=== PATIENT | male | born 1950 | race African-American/Black ===

== ENCOUNTER 2017-05-28 17:23 | Observation (INO) | payer OTHER ==
[2017-05-28 18:41] LABS: #Eosinphils 0.1 thou/uL (0.0-0.7); #Lymphocytes 2.7 thou/uL (1.20-3.40); #Monocytes 0.8 thou/uL (0.11-0.59); #Neutrophils 3.9 thou/uL (1.40-6.50); %Basophils 0.4 % (0.0-1.0); %Eosinophils 0.9 % (0.0-10.0); %Lymphocytes 36.2 % (21.0-51.0); %Monocytes 10.8 % (0.0-10.0); Hematocrit 32.6 % (42.0-52.0); Mean Platelet Volume 8.2 fL (7.4-10.4); Red Blood Cell (RBC) Count 3.57 mill/uL (4.70-6.10); White Blood Cell (WBC) Count 7.5 thou/uL (4.8-10.8)
[2017-05-28 18:54] LABS: ALT (SGPT) 11 U/L (8-55); AST (SGOT) 19 U/L (5-34); Alkaline Phosphatase 101 U/L (40-150); Anion Gap 15 mmol/L (10-20); BUN (Urea Nitrogen) 19 mg/dL (8.4-25.7); Bilirubin, Total 0.3 mg/dL (0.2-1.2); Calc. Creatinine Clearance 0 mL/min (70-130); Calcium 9.5 mg/dL (7.8-10.44); Carbon Dioxide 15 mmol/L (23-31); Chloride 113 mmol/L (98-107); Estimated GFR-MDRD 72; Globulin 4.1 g/dL (2.4-3.5); Protein, Total 8.2 g/dL (5.8-8.1)
--- NOTE | 2017-05-28 20:36 | CT ---
CT BRAIN WITHOUT CONTRAST 05/28/17 HISTORY: Fall. COMPARISON: CT brain 03/09/17. FINDINGS: The right MCA distribution encephalomalacia is similar. Ex vacuo dilatation of ventricular system is similar. No hemorrhage. Extensive microvascular ischemic changes. Multifocal volume loss of the cereb ellum. Calvarium is intact. The paranasal sinuses and mastoids are clear. IMPRESSION: No significant change. No acute hemorrhage. POS: [facility]
[2017-05-28] MEDS ORDERED: Sodium Chloride 0.9% 1,000 ML IV SCH (22:45)
[2017-05-28 23:09] VITALS: BMI 23.6
[2017-05-29] MEDS ORDERED: Lorazepam 2 MG/ML VIAL SLOW IVP SCH (01:15)
--- NOTE | 2017-05-29 07:08 | HP ---
CHIEF COMPLAINT: Intractable seizures. HISTORY OF PRESENT ILLNESS: The patient is a 66-year-old male with history of seizure disorder ever since he has had 2 CVAs in the past. His family states that he has not been missing his Keppra, but began to have seizure activity despite taking his medication. His first CVA was 2 years ago. He has been hospitalized twice for having seizures when his family will notice that his eyes start flutteri ng and he will turn his head to the left and starts shaking. When EMS was called and they arrived an d he was conscious on arrival, blood sugar was 162. The states that he had fallen from a porch during this seizure with unknown trauma to the head. His last hospitalization for seizure activity w as 3 months ago. PAST MEDICAL HISTORY: The aforementioned CVA x2, hypertension, general noncompliance with medication , congestive heart failure, dementia, hyperlipidemia, pacemaker placement due to arrhythmia. His fir st stroke was in 10/2014. Non-insulin dependent diabetes mellitus. PAST SURGICAL HISTORY: Right hip replacement and the AICD pacemaker. There is no prior history of psychiatric illness or hospitalizations. SOCIAL HISTORY: He is , drinks socially every week. Denies drug use, currently uses tobacco, smokes a half pack per day despite being told he should stop. ALLERGIES: He has no known drug allergies. CURRENT MEDICATIONS: Furosemide 40 mg daily, Keppra 750 mg b.i.d., vitamin D 50,000 units weekly, Ar icept 5 mg at bedtime, Lopid 600 mg b.i.d., potassium 20 mEq daily, clonidine TTS 1 up changed weekly , Lipitor 10 mg at bedtime, metformin 1000 mg b.i.d., he also takes carvedilol 25 mg b.i.d. REVIEW OF SYSTEMS: GENERAL: At the time of admission showed him thriving, unable to give good history such that it was obtained from EMS. NEURO: Neurologically, he has unequal hand grasp with weakness on the left. HEENT: Denies blurred vision or headache, sores or lesions. CHEST: Denies cough or shortness of breath. HEART: Denies chest pain or arrhythmia or palpitations. ABDOMEN: Denies nausea, vomiting or diarrhea. EXTREMITIES: Denies painful urination or blood in urine or stool. MUSCULOSKELETAL: He has left-sided weakness which is not new and no other weaknesses are noted. SKIN: Without acute rashes or lesions. PHYSICAL EXAMINATION: VITAL SIGNS: On admission blood pressure 159/67, pulse 86, respirations 18, O2 sat 95% on room air. GENERAL: This is a well-developed, well-nourished male with diminished responsiveness. HEENT: Normocephalic and atraumatic. Pupils equal, round, and reactive to light with arcus senilis bilaterally. TMs, nares, and pharynx are clear. NECK: Neck is Supple. CHEST: Clear to auscultation. HEART: Regular rate and rhythm without murmur. ABDOMEN: Soft, without organomegaly, nontender. : Deferred. EXTREMITIES: Without clubbing, cyanosis, or edema. There is general muscular weakness noted general ly, but a little less muscle tone on the left in upper and lower extremities. SKIN: Without acute rashes or lesions. NEUROLOGIC: Cranial nerves are intact. Unable to test gait and cerebellar function at this time. S ensory is grossly intact. Deep tendon reflexes untested. The mental status shows diminished respons iveness. He will look at you, but will vaguely respond to your questions with a head nod. LABORATORY: CT of the brain shows no acute findings with general encephalomalacia. WBC 7.5, hemoglo bin 11, hematocrit 32.6 with platelets at 158. Sodium 140, potassium 3.4, chloride 111, CO2 15, BUN 19, creatinine 1.22 with glucose of 122. ASSESSMENT: 1. Intractable seizures despite supratherapeutic Keppra levels. 2. History of cerebrovascular accident x2. 3. Hypertension. 4. History general medical noncompliance. 5. Non-insulin dependent diabetes. PLAN: Supportive care. Neurological consult to see if an additional anti-seizure medicine will be i nitiated. We will do a swallow evaluation since he tends to have much less of an alerting and neurol ogical responsiveness in the past and serial reevaluation.
[2017-05-29] MEDS ORDERED: Lorazepam 2 MG/ML VIAL SLOW IVP PRN (08:17)
[2017-05-29] MEDS ORDERED: Insulin Regular 300 UNITS/3 ML VIAL SC PRN (08:18)
[2017-05-29] MEDS ORDERED: Dextrose 50% Abboject 50 ML SYRINGE IVP PRN (08:18)
[2017-05-29] MEDS ORDERED: Dextrose 5% in Water 1,000 ML IV PRN (08:18)
[2017-05-29] MEDS ORDERED: Enalaprilat Dihydrate 1.25 MG/ML VIAL SLOW IVP PRN (08:18)
[2017-05-29] MEDS ORDERED: cloNIDine 0.2mg/24 Hour PATCH TD SCH (09:00)
[2017-05-29] MEDS: Sodium Chloride 0.9% 1,000 ML IV SCH (14:43)
[2017-05-29] MEDS ORDERED: levETIRAcetam 500 mg/5 ml Oral Solution PO SCH ×2 (15:00→21:00)
[2017-05-29] MEDS: levETIRAcetam 500 mg/5 ml Oral Solution PO SCH (20:54)
--- NOTE | 2017-05-30 01:29 | CON ---
DATE OF CONSULTATION: 05/29/2017 REFERRING PROVIDER: Dr. Samy Hilliard. REASON FOR CONSULTATION: Recurrent seizures. HISTORY OF PRESENT ILLNESS: Mr. Westfall is a pleasant 66-year-old -[place] male with a history of right MCA stroke and seizures, presented with the recurrent seizures. History is obtained from nallely aldridge's family member who was present at bedside. She reports that patient was recently discharged from the hospital about 2 months ago. His Keppra level was adjusted due to 1500 mg b.i.d. He was do ing well up until yesterday when he started having recurrent episodes of seizures. He initially had a focal motor jerking of his left side followed by whole body convulsions, they are cutting in cluste rs of 5-6, which prompted her to bring him to the [facility]. She states that about a week ago he was having some left eye and lip twitching, which she felt it was probably due to sleep and she did not think of it much at that time. However, today was much generalized, which prompted [facility] to bring him to the [place] [facility]. According to the nurse, who is taking care of the patient, he had approximately 10 spells each with focal motor jerking of the left upper extremity. Albert serrano did have one episode where he had left upper extremity stiffening with a head turning to the left s ambrocio followed by whole body convulsions that lasted approximately 1-2 minutes. This has since resolve d. He currently denies any headache, nausea, vomiting, abdominal pain. PAST MEDICAL HISTORY: Significant for history of hypertension, stroke, congestive heart failure, dem entia, hyperlipidemia, seizure disorder, and diabetes. PAST SURGICAL HISTORY: Significant for right hip replacement and AICD pacemaker placement. SOCIAL HISTORY: He is . He drinks alcohol on socially. He denies illicit drug use. He does smoke half a pack per day. CURRENT MEDICATIONS: Please review MAR. ALLERGIES: No known drug allergies. REVIEW OF SYSTEMS: As mentioned above in the HPI, otherwise negative. PHYSICAL EXAMINATION: VITAL SIGNS: Blood pressure of 167/91, pulse of 80, temperature of 97.3, respirations of 21, O2 sats of 97% on room air. GENERAL: Thin-appearing -[place] male, in no apparent distress. RESPIRATORY: Clear to auscultation bilaterally. CARDIOVASCULAR: Regular rate and rhythm. NEUROLOGIC: Mental status: The patient is awake, alert, oriented x3. Speech and language, mildly d ysarthric speech. Cranial nerves: Pupils are 3 mm and reactive. Visual hunt are full to threat. Extraocular muscles are intact. No nystagmus noted. Face is symmetric. Tongue and uvula are midli ne. Motor exam showed flaccid left upper and left lower extremity. He has 0/5 strength in the left upper extremity, strength in the left lower extremity is 3-4/5, strength in the right upper and right lower extremity is 5/5. Sensory: Sensation appears intact. Deep tendon reflexes 1-2+ reflexes in both upper and lower extremities. Babinski: Plantar responses extensor on the left, flexion on the right. Coordination could not be performed. Gait and Romberg could not be performed. LABORATORY DATA: Reviewed, which included CBC, CMP, Keppra level, which is significant for hemoglobi n 11.0, hematocrit 32.6, potassium of 3.4, Keppra level was greater than 100.3. IMAGING STUDIES: CT scan of the head was reviewed, which showed no acute intracranial abnormality. IMPRESSION: 1. Complex partial seizure with secondary generalization. 2. History of prior right MCA stroke. ASSESSMENT AND PLAN: Mr. Westfall is a pleasant 66-year-old -[place] male with a history of str ella and seizure disorder, who presented with recurrent episodes of seizures. At this time, I would r ecommend continuing on Keppra 1500 mg b.i.d. I would repeat his Keppra level on tomorrow. I am load ing with fosphenytoin 1 gram IV load dose followed by Dilantin 300 mg at bedtime. If he remains seiz ure free over the next 24 hours, then the patient is going to discharge to home with outpatient appoi ntment with Dr. Tresa Arevalo for seizure management.
[2017-05-30] MEDS: Sodium Chloride 0.9% 1,000 ML IV SCH (01:48)
[2017-05-30 04:09] LABS: #Lymphocytes 3.3 thou/uL (1.20-3.40); #Neutrophils 5.2 thou/uL (1.40-6.50); %Basophils 0.4 % (0.0-1.0); %Eosinophils 0.2 % (0.0-10.0); %Lymphocytes 34.2 % (21.0-51.0); %Monocytes 10.8 % (0.0-10.0); Hematocrit 29.4 % (42.0-52.0); Mean Platelet Volume 7.9 fL (7.4-10.4); Red Blood Cell (RBC) Count 3.18 mill/uL (4.70-6.10); White Blood Cell (WBC) Count 9.6 thou/uL (4.8-10.8)
[2017-05-30 04:28] LABS: Anion Gap 11 mmol/L (10-20); BUN (Urea Nitrogen) 10 mg/dL (8.4-25.7); Calc. Creatinine Clearance 77 mL/min (70-130); Carbon Dioxide 18 mmol/L (23-31); Chloride 116 mmol/L (98-107); Estimated GFR-MDRD Greater than 90
[2017-05-30] MEDS: levETIRAcetam 500 mg/5 ml Oral Solution PO SCH (09:50)
[2017-05-30 15:44] VITALS: BP 146/60; TEMP 98.6
[2017-05-30] MEDS ORDERED: Carvedilol 25 MG TAB PO SCH (15:45)
--- NOTE | 2017-05-30 21:37 | DIS-2 ---
FINAL DIAGNOSES: 1. Seizures. 2. History of cerebrovascular accident. 3. Hypertension. COMPLICATIONS: None. PROCEDURES: None. CONSULTANTS: Dr. Arevalo. HOSPITAL COURSE: This is a pleasant gentleman who presented to the hospital with ongoing seizure. H e did have a Keppra level slightly being therapeutic. He did have a brain CT that was unremarkable. He did have speech see the patient in consultation, which they did recommend based on his history of stroke to have a pureed diet. The Keppra level was checked, Keppra medication was changed, was also added on Dilantin by Dr. Arevalo. The patient's blood pressure remained stable in the hospital. The p atient's CBC showed H&H of 11 and 32.6, his platelet count was 158. His blood sugar was 120. Liver enzymes were okay. Hospital course was unremarkable. He was able to eat now. He was seizure free f or 24 hours and he was discharged home in stable condition. DIET: Pureed diet. ACTIVITIES: As tolerated. DISCHARGE MEDICATIONS: 1. Catapres TTS 2 q. week. 2. Keppra 1500 mg b.i.d. 3. Dilantin ER 300 mg every day. 4. Lipitor 10 mg every day. 5. Coreg 25 mg b.i.d. 6. Aricept 5 mg every day. 7. Vitamin D2, 50,000 units q. ham[place]. 8. Furosemide 40 mg every day. 9. Lopid 600 mg b.i.d. 10. Metformin 1000 mg b.i.d. 11. Potassium 20 mEq daily. FOLLOWUP: Follow up with Liliana or Dr. Mcnally in 1 week or prior to that if he has any complication s.
== END 2017-05-30 17:29 | disposition home or self-care (01) ==
LOC: ERS 17:23 → 2SE 20:50
PROVIDERS: ADMIT Specialist; ATTEND Specialist
DX: G40.919 Epilepsy, unspecified, intractable, without status epilepticus (principal); E10.9 Type 1 diabetes mellitus without complications; I11.0 Hypertensive heart disease with heart failure; I50.9 Heart failure, unspecified; E78.5 Hyperlipidemia, unspecified; F17.210 Nicotine dependence, cigarettes, uncomplicated; F03.90 Unspecified dementia, unspecified severity, without behavioral disturbance, psychotic disturbance, mood disturbance, and anxiety; Z79.899 Other long term (current) drug therapy; Z95.0 Presence of cardiac pacemaker; Z96.641 Presence of right artificial hip joint; Z95.810 Presence of automatic (implantable) cardiac defibrillator; Z98.890 Other specified postprocedural states; Z91.14 Patient's other noncompliance with medication regimen; Z86.73 Personal history of transient ischemic attack (TIA), and cerebral infarction without residual deficits
CPT/HCPCS: 36415; 36416; 70450; 80048; 80053; 80177; 85025; 96361; 96365; 96375; G0378; G8996-GN-CJ; G8996-GN-CK; G8997-GN-CJ; J2060; J7050; Q2009

== ENCOUNTER 2017-06-07 09:19 | Observation (INO) | payer OTHER ==
--- NOTE | 2017-06-07 10:01 | CT ---
CT OF HEAD NONCONTRAST: Date: 06/07/17 INDICATION: Stroke, right-sided weakness, emergency exam. FINDINGS/IMPRESSION: There is redemonstration of a large region of right-sided encephalomalacia with superimposed multifoc al mild chronic microvascular ischemic disease. No intracranial hemorrhage, mass effect, or midline s hift. Ventricular prominence related to ex vacuo dilatation remains. Telephone call placed to patient's physician, Natanael Rodrigues, at 0933 hours 06/07/17. IMPRESSION: No acute intracranial hemorrhage or mass effect. CODE CR. POS: [facility]
[2017-06-07 11:48] LABS: #Lymphocytes 3.9 thou/uL (1.20-3.40); #Monocytes 1.5 thou/uL (0.11-0.59); %Basophils 0.1 % (0.0-1.0); %Lymphocytes 25.3 % (21.0-51.0); %Monocytes 9.6 % (0.0-10.0); %Neutrophils 64.9 % (42.0-75.0); Hemoglobin 11.9 g/dL (14.0-18.0); Mean Corpuscular HGB CONC 34.1 g/dL (32.0-36.0); Mean Corpuscular Hemoglobin 31.2 pg (27.0-31.0); Mean Corpuscular Volume 91.5 fl (80.0-94.0); Mean Platelet Volume 7.8 fL (7.4-10.4); Platelet Count 199 thou/uL (130-400); RBC Distribution Width 13.4 % (11.5-14.5); Red Blood Cell (RBC) Count 3.81 mill/uL (4.70-6.10); White Blood Cell (WBC) Count 15.3 thou/uL (4.8-10.8)
[2017-06-07] MEDS ORDERED: Aspirin 300 MG Suppository ONE (12:12)
[2017-06-07 12:15] LABS: ALT (SGPT) 12 U/L (8-55); AST (SGOT) 21 U/L (5-34); Albumin 4.2 g/dL (3.4-4.8); Alkaline Phosphatase 107 U/L (40-150); Anion Gap 16 mmol/L (10-20); BUN (Urea Nitrogen) 17 mg/dL (8.4-25.7); Bilirubin, Total 0.3 mg/dL (0.2-1.2); CK (CPK) 36 U/L (30-200); Calc. Creatinine Clearance 0 mL/min (70-130); Calcium 9.8 mg/dL (7.8-10.44); Carbon Dioxide 17 mmol/L (23-31); Chloride 110 mmol/L (98-107); Estimated GFR-MDRD 88; Globulin 4.3 g/dL (2.4-3.5); Glucose 134 mg/dL (80-115); Potassium 3.8 mmol/L (3.5-5.1); Protein, Total 8.5 g/dL (5.8-8.1); Sodium 139 mmol/L (136-145)
[2017-06-07 12:20] LABS: CKMB 0.5 ng/mL (0-6.6); Troponin I 0.083 ng/mL (< 0.028)
--- NOTE | 2017-06-07 12:23 | RAD ---
CHEST 1 VIEW: Date: 06/07/17 COMPARISON: 10/07/16, 03/10/17. HISTORY: Altered mental status. Difficulty breathing. Stroke alert. FINDINGS: Stable right-sided defibrillator. Stable cardiac silhouette. Pulmonary vessels and hilum are normal. Costophrenic angles are clear. Asymmetric increased density projecting over the left lung apex may be due to overlying soft tissue structures, possibly hair or clothing material. There is increased dens ity in the left neck. Repeat imaging is recommended. No pneumothorax. IMPRESSION: Increased density in the left lung apex as above. Repeat imaging is recommended. POS: [facility]
[2017-06-07] MEDS ORDERED: Ketorolac Tromethamine 30 MG/ML VIAL ONE (13:24)
[2017-06-07 15:09] LABS: Troponin I 0.136 ng/mL (< 0.028)
[2017-06-07] MEDS ORDERED: Levalbuterol HCl 1.25 MG/0.5 ML NEB NEB PRN (17:12)
[2017-06-07] MEDS ORDERED: Dextrose 50% Abboject 50 ML SYRINGE IVP PRN (17:49)
[2017-06-07] MEDS ORDERED: Dextrose 5% in Water 1,000 ML IV PRN (17:49)
[2017-06-07] MEDS ORDERED: cloNIDine 0.1mg/24 Hour PATCH TD SCH (18:00)
[2017-06-07] MEDS: Sodium Chloride 0.9% 1,000 ML IV SCH (18:19)
[2017-06-07] MEDS: cefTRIAXone\\ROCEPHIN 1 GM, Syringe 0.4 ML in Sterile Water 9.6 ML SLOW IVP SCH (19:49)
[2017-06-07] MEDS: levETIRAcetam 500 MG TAB PO SCH (20:09)
[2017-06-07] MEDS: Carvedilol 25 MG TAB PO SCH (20:12)
[2017-06-07] MEDS: Donepezil HCl 5 MG TAB PO SCH (20:13)
[2017-06-07] MEDS: Atorvastatin Calcium 10 MG TAB PO SCH (20:14)
[2017-06-07] MEDS ORDERED: Acetaminophen 325 MG TAB PO PRN ×2 (21:39→21:49)
[2017-06-07] MEDS ORDERED: Acetaminophen 650 MG Suppository PR PRN (21:40)
--- NOTE | 2017-06-08 01:51 | HP ---
REASON FOR ADMISSION: Altered level of consciousness. HISTORY OF PRESENT ILLNESS: This is a pleasant gentleman, who was just in the hospital on May [id number] at which time, he had intractable seizures. He was seen by Neurology at that time and his me dication was adjusted. He does have a history of CVA x2, who presents with altered level of consciousness and more weakness on the right side. He is known to have more weakness bilaterally. His became concerned and bro ught him to the hospital where a CT of the head was unremarkable; however, he did have a chest x-ray and a chest x-ray showed increased density in the left lung apex. The patient currently is awake, but he will not follow commands, though he will respond to my questio ns. Most of the history was obtained from the records. PAST MEDICAL HISTORY: 1. CVA x2. 2. Hypertension. 3. Hyperlipidemia. 4. Seizures. 5. Noncompliance. 6. Congestive heart failure. 7. Dementia. 8. Hyperlipidemia. 9. Non-insulin dependent diabetes mellitus. PAST SURGICAL HISTORY: 1. Right hip replacement in the past. 2. AICD. ALLERGIES: None. MEDICATIONS: 1. Lipitor 10 mg at bedtime. 2. Coreg 25 mg b.i.d. 3. Clonidine patch TTS 1 every 7 days. 4. Aricept 5 mg every day. 5. Vitamin D2 of 50,000 units twice a week. 6. Furosemide 40 mg . 7. Lopid 600 mg b.i.d. 8. Keppra 1500 b.i.d. 9. Metformin 1000 mg b.i.d. 10. Dilantin ER 300 mg every day. 11. Potassium 20 mEq every day. SOCIAL HISTORY: He is . He drinks socially over a week. He does currently smoke despite shay ng told not to smoke. FAMILY HISTORY: Noncontributory. REVIEW OF SYSTEMS: Cannot be obtained due to patient's mental status. PHYSICAL EXAMINATION: GENERAL: Upon evaluation, he is awake, he will not follow commands, however. VITAL SIGNS: His blood pressure is 170/70, pulse 90, respirations 16, temperature 98.5. NECK: Supple with no increased JVP or carotid bruit. Carotid had good upstroke with no thyromegaly. COR: Regular rate and rhythm. CHEST: Symmetrical with scattered rhonchi and wheezing. ABDOMEN: Soft, nontender with normoactive bowel sounds. There was no bruit or organomegaly. EXTREMITIES: No edema or cyanosis. He had palpable pedal pulses. NEUROLOGIC: He is awake, but not alert and he will not follow any type of commands. IMAGING: Chest x-ray as enumerated above. LABORATORY DATA: Showed H&H to be 11.9 and 34.8, platelets 199, his white blood cells 15.3. His BUN and creatinine are normal. His glucose is 134. Cardiac enzymes showed 0.083 troponin, was 0. 136. ASSESSMENT: 1. He has altered level of consciousness. 2. Possible transient ischemic attack. 3. History of cerebrovascular accident. 4. Seizures. 5. Diabetes. 6. Hyperlipidemia. 7. Hypertension. 8. Noncompliance. 9. Tobacco use. 10. He has possible pneumonia. PLAN: 1. The patient will be admitted. Routine vital signs will be obtained. 2. We will have a chest x-ray and CBC and CMP in the morning. 3. We will check a Dilantin level and Keppra level, also would begin checking blood sugars. 4. We will start IV and begin Rocephin 1 g IV q.24 hours, along with IV fluids. 5. We will check PT, OT and speech to see the patient in consultation. 6. We will give Xopenex p.r.n. 7. We will feed the patient with a pureed diet once he is more alert. The family was updated and dennis caldwell questions were answered to the patient's satisfaction.
[2017-06-08 05:16] LABS: #Monocytes 1.6 thou/uL (0.11-0.59); #Neutrophils 7.4 thou/uL (1.40-6.50); %Basophils 0.3 % (0.0-1.0); %Eosinophils 0.1 % (0.0-10.0); %Lymphocytes 35.4 % (21.0-51.0); %Monocytes 11.4 % (0.0-10.0); %Neutrophils 52.8 % (42.0-75.0); Hemoglobin 11.2 g/dL (14.0-18.0); Mean Corpuscular HGB CONC 35.1 g/dL (32.0-36.0); Mean Corpuscular Hemoglobin 31.9 pg (27.0-31.0); Mean Corpuscular Volume 90.8 fl (80.0-94.0); Mean Platelet Volume 8.4 fL (7.4-10.4); Platelet Count 181 thou/uL (130-400); RBC Distribution Width 13.4 % (11.5-14.5); Red Blood Cell (RBC) Count 3.52 mill/uL (4.70-6.10)
[2017-06-08 06:22] LABS: ALT (SGPT) 12 U/L (8-55); AST (SGOT) 20 U/L (5-34); Albumin 3.7 g/dL (3.4-4.8); Alkaline Phosphatase 85 U/L (40-150); Anion Gap 16 mmol/L (10-20); BUN (Urea Nitrogen) 24 mg/dL (8.4-25.7); Bilirubin, Total 0.3 mg/dL (0.2-1.2); Calc. Creatinine Clearance 51 mL/min (70-130); Calcium 9.2 mg/dL (7.8-10.44); Carbon Dioxide 18 mmol/L (23-31); Chloride 112 mmol/L (98-107); Estimated GFR-MDRD 80; Globulin 3.7 g/dL (2.4-3.5); Glucose 105 mg/dL (80-115); Potassium 3.5 mmol/L (3.5-5.1); Protein, Total 7.4 g/dL (5.8-8.1); Sodium 142 mmol/L (136-145)
--- NOTE | 2017-06-08 07:50 | PRG ---
DATE OF SERVICE: 06/07/2017 This is HRASHA Hammond dictating a progress note for Yamil Mcnally M.D. SUBJECTIVE: Patient is more awake this morning, he is more alert. He will follow commands. PHYSICAL EXAMINATION: VITAL SIGNS: His blood pressure is 121/60, pulse 90, respirations 14, temperature 100.3. NECK: Supple with no increased JVP or carotid bruit. Carotid had good upstroke with no thyromegaly. COR: Regular rate and rhythm. CHEST: Symmetrical with rhonchi. ABDOMEN: Soft and nontender with normoactive bowel sounds. There is no bruit or organomegaly. EXTREMITIES: No edema or cyanosis. Palpable pedal pulses. SKIN: There is no evidence of ulcer, lesion, or rash. NEUROLOGIC: He is awake and more alert today. LABORATORY DATA AND IMAGING: His white blood cell is 14, which is better, his hemoglobin and hematoc rit was 11.2 and 32.0, his platelet count is 181. His chest x-ray is pending. ASSESSMENT: 1. Altered level of consciousness, improved. 2. History of cerebrovascular accident. 3. Seizure disorder. 4. Hypertension. 5. Tobacco use. 6. Probable pneumonia. PLAN: We will continue the patient on IV antibiotics and wait for chest x-ray and follow up with lab in the morning. We will also encourage I's and O's and continue breathing treatments.
[2017-06-08] MEDS ORDERED: FLU VACC QS2017-18 36 mo. & older 0.5 ML SYRINGE IM ONE (09:00)
--- NOTE | 2017-06-08 09:38 | RAD ---
CHEST 1 VIEW: Date: 06/08/17 HISTORY: Pneumonia. COMPARISON: 06/07/17. FINDINGS: Stable right-sided defibrillator. Cardiac silhouette is within normal limits. Pulmonary vessels and h ilum are normal. Costophrenic angles are clear. No consolidation or mass. No pneumothorax or osseous abnormalities. Previously noted opacity projecting over the left lung apex is likely artifactual as it has resolved on the current exam. IMPRESSION: No acute cardiopulmonary process. POS: [facility]
[2017-06-08] MEDS: Sodium Chloride 0.9% 1,000 ML IV SCH ×2 (09:41→20:30)
[2017-06-08] MEDS: Gemfibrozil 600 MG TAB PO SCH ×2 (09:42→17:52)
[2017-06-08] MEDS: levETIRAcetam 500 MG TAB PO SCH ×2 (09:43→20:16)
[2017-06-08] MEDS: metFORMIN 500 MG TAB PO SCH ×2 (09:43→17:52)
[2017-06-08] MEDS: Carvedilol 25 MG TAB PO SCH ×2 (09:43→20:17)
[2017-06-08] MEDS: cloNIDine 0.1 MG TAB PO SCH (09:43)
[2017-06-08] MEDS: Furosemide 40 MG TAB PO SCH (09:43)
[2017-06-08] MEDS: Potassium Chloride 20 MEQ TAB PO SCH (09:44)
[2017-06-08] MEDS: Azithromycin 500 MG in Sodium Chloride 0.9% 250 ML 250 ML IVPB SCH (09:49)
[2017-06-08 10:38] VITALS: BMI 19.8
[2017-06-08] MEDS: Insulin Regular 300 UNITS/3 ML VIAL SC PRN (13:04)
[2017-06-08] MEDS: cefTRIAXone\\ROCEPHIN 1 GM, Syringe 0.4 ML in Sterile Water 9.6 ML SLOW IVP SCH (18:00)
[2017-06-08] MEDS: Donepezil HCl 5 MG TAB PO SCH (20:17)
[2017-06-08] MEDS: Atorvastatin Calcium 10 MG TAB PO SCH (20:17)
[2017-06-09] MEDS: Sodium Chloride 0.9% 1,000 ML IV SCH ×3 (00:17→23:00)
[2017-06-09 04:53] LABS: #Eosinphils 0.1 thou/uL (0.0-0.7); #Lymphocytes 3.8 thou/uL (1.20-3.40); #Neutrophils 6.7 thou/uL (1.40-6.50); %Basophils 0.3 % (0.0-1.0); %Lymphocytes 32.5 % (21.0-51.0); %Monocytes 8.6 % (0.0-10.0); %Neutrophils 57.6 % (42.0-75.0); Hemoglobin 10.8 g/dL (14.0-18.0); Mean Corpuscular HGB CONC 33.5 g/dL (32.0-36.0); Mean Corpuscular Hemoglobin 30.9 pg (27.0-31.0); Mean Corpuscular Volume 92.4 fl (80.0-94.0); Mean Platelet Volume 8.2 fL (7.4-10.4); Platelet Count 170 thou/uL (130-400); RBC Distribution Width 13.5 % (11.5-14.5); Red Blood Cell (RBC) Count 3.49 mill/uL (4.70-6.10); White Blood Cell (WBC) Count 11.7 thou/uL (4.8-10.8)
[2017-06-09] MEDS: cloNIDine 0.1 MG TAB PO SCH (08:36)
[2017-06-09] MEDS: Furosemide 40 MG TAB PO SCH (08:37)
[2017-06-09] MEDS: Carvedilol 25 MG TAB PO SCH ×2 (08:37→19:54)
[2017-06-09] MEDS: levETIRAcetam 500 MG TAB PO SCH ×2 (08:37→19:54)
[2017-06-09] MEDS: Potassium Chloride 20 MEQ TAB PO SCH (08:38)
[2017-06-09] MEDS: Gemfibrozil 600 MG TAB PO SCH ×2 (08:38→17:51)
[2017-06-09] MEDS: metFORMIN 500 MG TAB PO SCH ×2 (08:38→17:51)
--- NOTE | 2017-06-09 09:02 | PRG ---
DATE OF SERVICE: 06/09/2017 SUBJECTIVE: The patient remains more with it. He will verbalize, but he is slow to respond. PHYSICAL EXAMINATION: VITAL SIGNS: Upon evaluation, his blood pressure is 140/70, pulse 78, respirations 14, temperature 9 7.8. HEENT: Unremarkable with bilateral arcus senilis. There is no xanthelasma. NECK: Supple with no increased JVP or carotid bruit. Carotid had good upstroke with no thyromegaly. COR: Regular rate and rhythm. CHEST: Symmetrical with few scattered rhonchi. ABDOMEN: Soft and nontender with normoactive bowel sounds. There is no bruit or organomegaly. EXTREMITIES: No edema or cyanosis. He had palpable pedal pulses. SKIN: There is no evidence of ulcer, lesion, or rash. NEUROLOGIC: He is awake and more alert. LABORATORY DATA: His white blood cell is 11.7, hemoglobin and hematocrit 10.8 and 32.3, glucose is 1 17. Chest x-ray for some reason now showed no acute cardiopulmonary process. ASSESSMENT: 1. Leukocytosis, I am still thinking upper respiratory. 2. Noncompliance. 3. Hypertension. 4. History of cerebrovascular accident. 5. Altered level of consciousness, improved. 6. Seizure disorder. 7. Subtherapeutic Dilantin. 8. Multiple medical problems. PLAN: We will continue the same patient's medication regime; however, will change Dilantin since his Dilantin level is low. The patient hopefully will be ready to go home in a few days. This is HARSHA Hammond dictating a progress note for Yamil Mcnally M.D.
[2017-06-09] MEDS: Azithromycin 500 MG in Sodium Chloride 0.9% 250 ML 250 ML IVPB SCH (09:35)
[2017-06-09] MEDS: Insulin Regular 300 UNITS/3 ML VIAL SC PRN (12:05)
--- NOTE | 2017-06-09 15:19 | CON ---
DATE OF CONSULTATION: 06/09/2017 NEUROLOGY FOLLOWUP CONSULTING PHYSICIAN: Dr. Mcnally. IMPRESSION: Recurrent seizures with subtherapeutic Dilantin level of 5.3. PLAN: 1. Continue Dilantin 400 mg per day as you have undertaken. 2. Continue Keppra 1500 mg b.i.d. HOSPITAL COURSE: Mr. Westfall is a 66-year-old man who is followed by Dr. Arevalo for seizures. He has a past history of stroke with left hemiparesis. He came in with some increased weakness and possible s eizure. He is a very poor historian and could not give me any details. He had a CT scan of the brai n done which did not show any acute changes. His laboratory studies are unremarkable other than an e levated white count. He had his Dilantin increased from 300-400 mg per day since admission. He has been afebrile. Agree with the current plan of treatment with increase in Dilantin dosing. He can follow up with Dr. Arevalo as an outpatient.
[2017-06-09] MEDS: cefTRIAXone\\ROCEPHIN 1 GM, Syringe 0.4 ML in Sterile Water 9.6 ML SLOW IVP SCH (17:51)
[2017-06-09] MEDS: Atorvastatin Calcium 10 MG TAB PO SCH (19:54)
[2017-06-09] MEDS: Donepezil HCl 5 MG TAB PO SCH (19:54)
[2017-06-10 04:23] LABS: #Basophils 0.1 thou/uL (0.0-0.2); #Eosinphils 0.1 thou/uL (0.0-0.7); #Lymphocytes 4.4 thou/uL (1.20-3.40); #Neutrophils 5.5 thou/uL (1.40-6.50); %Basophils 0.5 % (0.0-1.0); %Lymphocytes 39.9 % (21.0-51.0); %Neutrophils 49.6 % (42.0-75.0); Mean Corpuscular HGB CONC 33.7 g/dL (32.0-36.0); Mean Corpuscular Volume 91.8 fl (80.0-94.0); Mean Platelet Volume 7.7 fL (7.4-10.4); Platelet Count 158 thou/uL (130-400); RBC Distribution Width 13.5 % (11.5-14.5); Red Blood Cell (RBC) Count 3.23 mill/uL (4.70-6.10)
[2017-06-10] MEDS: Gemfibrozil 600 MG TAB PO SCH (08:38)
[2017-06-10] MEDS: Azithromycin 500 MG in Sodium Chloride 0.9% 250 ML 250 ML IVPB SCH (08:38)
[2017-06-10] MEDS: cloNIDine 0.1 MG TAB PO SCH (08:38)
[2017-06-10] MEDS: metFORMIN 500 MG TAB PO SCH (08:42)
[2017-06-10] MEDS: Carvedilol 25 MG TAB PO SCH (08:42)
[2017-06-10] MEDS: Furosemide 40 MG TAB PO SCH (08:43)
[2017-06-10] MEDS: Potassium Chloride 20 MEQ TAB PO SCH (08:43)
[2017-06-10] MEDS: levETIRAcetam 500 MG TAB PO SCH (08:43)
[2017-06-10 12:16] VITALS: TEMP 98.1
[2017-06-10 14:37] VITALS: BP 135/64
[2017-06-11] MEDS ORDERED: Ergocalciferol 1.25 MG(50,000 UNITS) CAP PO SCH (09:00)
--- NOTE | 2017-06-11 14:40 | DIS ---
DATE ON ADMISSION: 06/07/2017 DATE OF DISCHARGE: 06/10/2017 CHIEF COMPLAINT ON ADMISSION: Altered level of consciousness. History and physical have previously been dictated. I will resume from there. HOSPITAL COURSE: The patient was placed in a telemetry bed where every heart will be monitored. He was placed on the stroke unit as well. We checked his Dilantin levels and blood sugar levels, began him on IV fluids and IV Rocephin, we will feed the patient with a pureed diet once he is more alert. Over the next 24 hours, he was much more awake and much more alert. He would follow commands. On 08/09, his vital signs were stable. He did have a temperature of 100.3. White count was elevated at 14,000. It was possible that he was developing pneumonia. He was continued on IV antibiotics while chest x-ray showed no acute cardiopulmonary process. Dr. Slavador was asked to see the patient in cons ultation. Over the next 24 hours, on 06/09/2017, he remained more alert. He would now verbalized an d slowly respond to questions. Vital signs remained stable. White cell count decreased to 11,000. Glucose is 117. We will continue his medication regime at this time. Dilantin level came back low, so that will be supplemented. Dr. Salvador saw the patient in consultation on 06/09/2017 as he had had seizure activity and had a history of seizures ever since a stroke that him with left hemiparesis. No acute process was noted on a CT of the head. His Dilantin dosages were increased to raise his Dil antin level. He agreed with the current plan of keeping him on increased Dilantin levels and followi ng up with Dr. Arevalo as an outpatient. As the patient continued to improve and he was able to be disc harged home on 06/10/2017 with follow up with Dr. Yamil Mcnally within the next week to reassess him. At the time of discharge, he was alert, no complaints. Temperature max has been to 100.8. Chest i s clear. Heart is regular. Neuro was returning to baseline and felt that he had an upper respirator y infection in addition to post-CVA, seizures. DISCHARGE DIAGNOSES: 1. Post-cerebrovascular accident seizure activity with subtherapeutic Dilantin level. 2. Upper respiratory infection. 3. Medication noncompliance. He was discharged home on increased Dilantin dosage as well as Zithrom ax and Omnicef to cover for any subclinical respiratory infections. Phenytoin level was 200 mg given twice a day, Omnicef doses was 300 b.i.d. and Zithromax with Z-Jack to finish. He was discharged in stable condition. The time necessary to review the chart, examine the patient, answer the patient's 's questions completely, reconcile all his medication and then prepare the c black and patient for discharge along with dictation came to 40 minutes. He will follow up with Dr. Mana klein in 1 week.
--- NOTE | 2017-08-03 14:07 | EKG ---
Test Reason : Blood Pressure : / mmHG Vent. Rate : 095 BPM Atrial Rate : 095 BPM P-R Int : 132 ms QRS Dur : 136 ms QT Int : 400 ms P-R-T Axes : 068 057 060 degrees QTc Int : 502 ms Normal sinus rhythm Possible Left atrial enlargement Right bundle branch block Left ventricular hypertrophy Abnormal ECG Confirmed by DOLLY CARTER, TRACIE ([id number]), news video editor CHIKI ANTONIO ([id number]) on 08/03/2017 2:07:22 PM Referred By: Confirmed By:TRACIE ALBERTO MD
--- NOTE | 2017-08-03 14:07 | EKG ---
Test Reason : Blood Pressure : / mmHG Vent. Rate : 094 BPM Atrial Rate : 094 BPM P-R Int : 134 ms QRS Dur : 134 ms QT Int : 442 ms P-R-T Axes : 069 030 078 degrees QTc Int : 552 ms Normal sinus rhythm Right bundle branch block Moderate voltage criteria for LVH, may be normal variant Abnormal ECG Confirmed by DOLLY CARTER, TRACIE ([id number]), sound editor CHIKI ANTONIO ([id number]) on 08/03/2017 2:07:18 PM Referred By: Confirmed By:TRACIE ALBERTO MD
== END 2017-06-10 12:59 | disposition home or self-care (01) ==
LOC: ERS 09:19 → 2SE 15:20
PROVIDERS: ADMIT Specialist; ATTEND Specialist
DX: R40.4 Transient alteration of awareness (principal); I69.351 Hemiplegia and hemiparesis following cerebral infarction affecting right dominant side; G40.919 Epilepsy, unspecified, intractable, without status epilepticus; E78.5 Hyperlipidemia, unspecified; I11.0 Hypertensive heart disease with heart failure; I50.9 Heart failure, unspecified; F03.90 Unspecified dementia, unspecified severity, without behavioral disturbance, psychotic disturbance, mood disturbance, and anxiety; E11.9 Type 2 diabetes mellitus without complications; F17.200 Nicotine dependence, unspecified, uncomplicated; D72.829 Elevated white blood cell count, unspecified; Z91.19 Patient's noncompliance with other medical treatment and regimen; Z79.84 Long term (current) use of oral hypoglycemic drugs; Z79.2 Long term (current) use of antibiotics; Z79.899 Other long term (current) drug therapy; Z96.651 Presence of right artificial knee joint; Z95.810 Presence of automatic (implantable) cardiac defibrillator
CPT/HCPCS: 36415; 36416; 70450; 70498; 71010; 80053; 80177; 80185; 82553; 84484; 85025; 90471; 90682; 93005; 96361; 96365; 96374; 96375; 96376; A4216; G0008; G0378; G8978-GP-CM; G8979-GP-CK; G8987-GO-CM; G8988-GO-CK; G8996-GN-CL; G8997-GN-CK; J0456; J0696; J1815; J1885; J7050; Q2036

== ENCOUNTER 2017-10-31 11:20 | Emergency (ER) | payer MEDICARE, MEDICAID ==
[~2017-10-31 11:20] MED LIST: Calcium Chloride 1 GM/10 ML Abboject SYRINGE ONE; EPINEPHrine 1 MG/10 ML Abboject SYRINGE ONE; Sodium Bicarb 50 MEQ/50 ML Abboject 8.4% SYRINGE ONE
== END 2017-10-31 11:40 | disposition expired ==
LOC: ERS 11:20
DX: I46.9 Cardiac arrest, cause unspecified (principal); E11.9 Type 2 diabetes mellitus without complications; I11.0 Hypertensive heart disease with heart failure; I50.9 Heart failure, unspecified; E78.5 Hyperlipidemia, unspecified; F17.210 Nicotine dependence, cigarettes, uncomplicated
CPT/HCPCS: 92950; 96374; 96375; J0171